=== PATIENT | female | born 1965 ===

== ENCOUNTER 2022-09-07 12:31 | Outpatient (REF) | payer OTHER, SELFPAY ==
[2022-09-07 16:14] LABS: Urine Cytology See Pathology rpt
== END 2022-09-07 12:32 | disposition home or self-care (01) ==
LOC: HO.LNP 12:31
PROVIDERS: PCP Family Medicine; Visit Provider Nurse Practitioner Family
DX: R31.29 Other microscopic hematuria (principal); R39.89 Other symptoms and signs involving the genitourinary system
CPT/HCPCS: 88112; 99202

== ENCOUNTER → 2022-10-19 09:25 | Outpatient (BNVA) | payer MEDICAID, SELFPAY | PROVIDERS: PCP Family Medicine; Visit Provider Urology | DX: R31.29 Other microscopic hematuria (principal); N30.90 Cystitis, unspecified without hematuria | CPT/HCPCS: 52000; 99212 ==

== ENCOUNTER 2023-06-07 08:40 | Outpatient (AMB) | payer MEDICAID, SELFPAY ==
--- NOTE | 2023-06-07 08:41 | A.OFFVIS_ITS ---
Intake Intake Visit Reasons: f/u Cystitis/Microhematuria Intake Note: Patient presents today for a follow-up on Cystitis & Microhematuria: Meds: None Antibiotic: Penicililins, Sulfa Blood Thinner: None Motor Vehicles Supervisor Required: No Accompanied by: Self / Same As Patient Allergies Penicillins [PCN] Allergy (Mild, Verified 06/07/23 08:42) RASH Sulfa (Sulfonamide Antibiotics) [SULFA (SULFONAMIDE ANTIBIOTICS)] Allergy (Mild, Verified 06/07/23 08:42) RASH penicillin V Allergy (Unknown, Verified 06/07/23 08:42) rash Medication List - Last Reconciled 06/07/23 by Natalia Lindsay MD albuterol sulfate 90 mcg/actuation 2 puffs inhalation Q6H PRN famotidine 40 mg PO DAILY fluticasone propion-salmeterol 500-50 mcg/dose (Advair Diskus) 1 ea inhalation BID fluticasone propionate 50 mcg/actuation 2 sprays intranasal DAILY loratadine 10 mg PO DAILY PRN montelukast 10 mg PO BEDTIME omeprazole 20 mg PO QAM rosuvastatin 10 mg PO DAILY HPI HPI Comments History of Present Illness Details Kuldip is a 57-year-old female who presents to the office for follow-up for persistent microscopic hematuria, and cystitis. 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 The patient has had previous office cystoscopy on 10/19/22, findings focal inflammatory changes consistent cystitis no suspicious bladder lesions. The patient states that she was evaluated by her PCP and had pap smear and was told she had urethral prolapse. The patient states she was prescribed estradiol cream which she has not been able to use because it powell. She complains of occasional dysuria. She denies urinary incontinence. She drinks 5 --16 oz bottles of water. Examination today pelvic exam--bladder neck well supported. Mild urethral caruncle. urinalysis-- Blood: 80 Aleksandr/uL, leukocytes: negative. Review of chart: 09/07/22-- Urine cytology- Negative 10/19/2022 Cystoscopy findings-- focal in flammatory changes consistent with cystitis, no suspicious bladder lesions. CAT scan--03/04/22-- 2 mm stone in the left mid ureter CAT scan--07/03/22-- re-demonstrated punctate calcification in the region of the left mid ureter which may either represent calcified plaque of the iliac artery given that uerteral calcification. Also, noted left renal cyst. Plan: Prescribed Premarin cream to see if she may tolerate this better to apply a pea- sized amount to the urethral tissue vaginally Re-evaluate upper tracts-CT urogram Repeat urine cytology Follow-up for repeat office cystoscopy [facility] Medical History Mixed hyperlipidemia Environmental allergies Asthma Surgical History History of abdominoplasty History of tubal ligation Hx of tonsillectomy History of carpal tunnel release Hx of augmentation mammoplasty Hx of appendectomy Family History Father No problems noted. Mother No problems noted. Social History Patient Tobacco Use Status: Former Tobacco user Quit Date: 10 years ago Review of Systems Const All systems reviewed & are unremarkable except as noted in HPI and below Reports no additional complaints Eyes Reports no additional complaints ENT Reports no additional complaints Card Denies dyspnea Resp Denies cough and Denies dyspnea GI Reports no additional complaints Reports no additional complaints Musc Reports no additional complaints Skin/Breast Denies rash and Denies unusual bruising Neuro Reports no additional complaints Psych Reports no additional complaints Endo Reports no additional complaints Hill/Lymph Reports no additional complaints Aller/Immun Reports no additional complaints Physical Exam Const General: cooperative, healthy appearing and no acute distress Orientation/consciousness: patient oriented x3 HEENT Head: Yes normal to inspection, Yes normocephalic and Yes atraumatic Eyes Conjunctivae: conjunctivae normal Neck Neck: Yes normal visual inspection and Yes trachea midline Chest Chest palpation & inspection: normal inspection of the chest Resp Effort & Inspection: normal respiratory effort Cardio Rate: regular rate GI Inspection: Yes normal to inspection Palpation (GI): Soft to palpation Other: mild urethral caruncle General: No no CVA tenderness External Female Exam: normal external appearance Back/Spine/Pelvis Back: No no CVA tenderness Skin General skin exam: no rashes or lesions noted Neuro General: patient oriented x3 Extrem General: No edema Psych Appearance: grossly normal Results AMB Urinalysis, Automated UA Leukoctes 15 Devendra/uL Last Edit by TOÑITO Mckenna on 06/07/23 08:52 UA Nitrite Negative Last Edit by TOÑITO Mckenna on 06/07/23 08:52 UA Urobilinogen 0.2 mg/dL Last Edit by TOÑITO Mckenna on 06/07/23 08:5 2 UA Protein 0 mg/dL Last Edit by TOÑITO Mckenna on 06/07/23 08:52 UA pH 7.0 Last Edit by TOÑITO Mckenna on 06/07/23 08:52 UA Blood 80 Aleksandr/uL Last Edit by TOÑITO Mckenna on 06/07/23 08:52 2+ Taniya Flores 06/07/23 08:52 UA Specific [place] 1.005 Last Edit by TOÑITO Mckenna on 06/07/23 08: 52 UA Ketone Negative Last Edit by TOÑITO Mckenna on 06/07/23 08:52 UA Bilirubin 0 mg/dL Last Edit by TOÑITO Mckenna on 06/07/23 08:52 UA Glucose 0 mg/dL Last Edit by TOÑITO Mckenna on 06/07/23 08:52 Results Reviewed Results Reviewed: Laboratory Last Values Urine pH (Auto) 7.0 06/07/23 08:48 Specific [place] (Auto) 1.005 06/07/23 08:48 Urine Protein (Auto) 0 mg/dL 06/07/23 08:48 Glucose (UA)(Auto) 0 mg/dL 06/07/23 08:48 Urine Ketones (Auto) Negative 06/07/23 08:48 Urine Blood (Auto) 80 Aleksandr/uL 06/07/23 08:48 Urine Nitrite (Auto) Negative 06/07/23 08:48 Urine Bilirubin (Auto) 0 mg/dL 06/07/23 08:48 Urine Urobilinogen (Auto) 0.2 mg/dL 06/07/23 08:48 Leukocyte Esterase (Auto) 15 Devendra/uL 06/07/23 08:48 Collected: 09/07/22 Location: [facility] Received: 09/08/22 Diagnosis Urine: Negative for high-grade urothelial carcinoma. COMMENT: Examination of a monolayer preparation slide shows many benign squamous cells, occasional benign urothelial cells, and few red blood cells Assessment & Plan Assessment & Plan (1) Hematuria: Code(s): R31.9 - Hematuria, unspecified (2) Cystitis: Code(s): N30.90 - Cystitis, unspecified without hematuria (3) Dysuria: Code(s): R30.0 - Dysuria (4) History of nicotine use: Code(s): Z87.891 - Personal history of nicotine dependence (5) Urethral caruncle: Code(s): N36.2 - Urethral caruncle Plan Prescribed Premarin cream to see if she may tolerate this better to apply a pea- sized amount to the urethral tissue vaginally Re-evaluate upper tracts-CT urogram Repeat urine cytology Follow-up for repeat office cystoscopy Orders: Orders AMB Urinalysis Automated Today Z13.9 - Encounter for screening, unspecified CT urogram Today R30.0 - Dysuria, R31.9 - Hematuria, unspecified Medications: New conjugated estrogens (Premarin) use a pea sized amount on fingertip qhs, apply to urethra 0.625 mg vaginal DAILY 30 grams 1RF Patient Instructions: The patient had an opportunity to ask questions regarding treatment plan. All questions were answered. Imaging, Laboratory studies and physical exam results were discussed and reviewed in detail. No major barriers to understanding were identified. The patient expressed understanding and agreement with the above treatment plan. The patient is aware they should contact our office by phone for worsening of their current condition or the appearance of new symptoms. Compliance is encouraged with any medications and followup testing that is ordered. It is a privilege to be allowed the opportunity to participate in the urologic care of your patient. If you have any questions or concerns regarding treatment for the above conditions please do not hesitate to contact me. The office telephone contact is [phone]. This note is constructed in part using voice recognition software. While every effort has been made to ensure accuracy police guard errors may have been included. Yours sincerely, Natalia Lindsay MD Coding Level of Care Code Est Pt Level 4 (39370) Diagnoses Hematuria R31.9 Cystitis N30.90 Dysuria R30.0 History of nicotine use Z87.891 Urethral caruncle N36.2
== END 2023-06-07 09:42 | disposition home or self-care (01) ==
PROVIDERS: PCP Family Medicine; Visit Provider Urology
DX: R31.9 Hematuria, unspecified (principal); N30.90 Cystitis, unspecified without hematuria; R30.0 Dysuria; Z87.891 Personal history of nicotine dependence; N36.2 Urethral caruncle; Z13.9 Encounter for screening, unspecified
CPT/HCPCS: 99214

== ENCOUNTER 2023-06-07 08:40 | Outpatient (REF) | payer MEDICAID, SELFPAY ==
[2023-06-07 17:03] LABS: Urine Cytology See Pathology rpt
== END 2023-06-07 08:41 | disposition home or self-care (01) ==
LOC: HO.LAB 08:40
PROVIDERS: PCP Family Medicine; Visit Provider Urology
DX: N30.91 Cystitis, unspecified with hematuria (principal); R31.29 Other microscopic hematuria; R30.0 Dysuria; N36.2 Urethral caruncle; Z87.891 Personal history of nicotine dependence; Z79.2 Long term (current) use of antibiotics; Z79.899 Other long term (current) drug therapy
CPT/HCPCS: 81003; 87086; 88112; 99212

== ENCOUNTER 2023-07-19 08:45 | Outpatient (REF) | payer MEDICAID, SELFPAY ==
--- NOTE | ~2023-07-19 | CT_ITS ---
EXAMINATION: CT UROGRAM WITHOUT AND WITH CONTRAST CLINICAL INFORMATION: Reason for Exam R31.9 - Hematuria, unspecified COMPARISON: No pertinent prior examinations are available for comparison. TECHNIQUE: Helical scanning was performed with collimation through the abdomen and pelvis precontrast. Helical scanning was then repeated with submillimeter collimation through the abdomen and pelvis in the pyelogram phase with use of 100 mL of Omnipaque 300 intravenous contrast. Sagittal and coronal 2-D reconstructions were obtained. Multiple additional 3-D volume rendered images were obtained of the kidneys and collecting systems on an independent workstation under concurrent supervision. This CT examination was performed using dose optimization techniques as appropriate, variously including the following: *Automated exposure control *Adjustment of mA and/or kV according to patient size (this includes techniques or standardized protocols for targeted exams where dose is matched to indication/reason for exam; i.e. extremities or head) *Use of iterative reconstruction technique DLP: [id number] FINDINGS: LUNG BASES: Bibasilar atelectasis. Calcified granulomas right lower lobe. No pneumothorax. No large pleural effusion. LIVER, GALLBLADDER, AND BILIARY TREE: The liver is normal in size, shape, and attenuation. No focal hepatic lesion or biliary ductal dilatation is present. The gallbladder is unremarkable with no evidence of radiopaque gallstones, gallbladder wall thickening, or obvious pericholecystic inflammatory changes. PANCREAS: Unremarkable SPLEEN: Unremarkable ADRENAL GLANDS: Unremarkable KIDNEYS AND URETERS: Specific attention was given to the kidneys. The right kidney measures 10.4 cm in size and the left kidney measures 10.4 cm in size. Left renal parapelvic cyst simple appearing not requiring follow-up measuring up to 2.6 cm. The kidneys are normal in size, shape, and attenuation. No hydronephrosis, hydroureter, or calculi seen. No perinephric stranding. No obvious mass lesion or filling defect is seen in the collecting systems or ureters. BLADDER: Urinary bladder fills appropriately and postcontrast imaging without focal filling defects identified. GASTROINTESTINAL TRACT: The small and large bowel are unremarkable. Appendix appears surgically absent. ABDOMINAL WALL: No significant hernia is appreciated. LYMPHOVASCULAR STRUCTURES: No enlarged lymph nodes per size criteria. Abdominal aorta is nonaneurysmal. PELVIC VISCERA: Anteverted uterus. OSSEOUS STRUCTURES: Slight grade 1 anterolisthesis of L5 and S1 with bilateral L5 pars defects. Multilevel degenerative changes of the thoracolumbar and lumbosacral spine. Sclerotic focus right femoral head statistically representing a bone island. CT/CT urogram IMPRESSION: 1. No acute process of the abdomen or pelvis visualized. 2. Left renal parapelvic cyst simple appearing not requiring follow-up. 3. Urinary bladder fills appropriately and postcontrast imaging without focal filling defects identified. 4. Slight grade 1 anterolisthesis of L5 and S1 with bilateral L5 pars defects.
[2023-07-19 09:35] LABS: Blood Urea Nitrogen 15 mg/dL (9-16); Estimated Glomerular Filt Rate > 60
[2023-07-19] MEDS: iohexoL 350 MG/ML 100 ML INFUS..BTL 85 ML IV (10:42)
== END 2023-07-19 08:46 | disposition home or self-care (01) ==
LOC: HO.CT 08:45
PROVIDERS: Visit Provider Urology
DX: R31.9 Hematuria, unspecified (principal); R30.0 Dysuria
CPT/HCPCS: 36415; 74178; 82565; 84520; Q9967

== ENCOUNTER → 2023-07-26 08:50 | Outpatient (BNVA) | payer MEDICAID, SELFPAY | PROVIDERS: PCP Family Medicine; Visit Provider Urology | DX: N36.2 Urethral caruncle (principal); R39.89 Other symptoms and signs involving the genitourinary system; R31.29 Other microscopic hematuria | CPT/HCPCS: 52000; 81003 ==

== ENCOUNTER 2023-07-26 13:15 | Outpatient (AMB) | payer MEDICAID, SELFPAY ==
--- NOTE | 2023-07-26 13:17 | MHC.OFFVIS ---
Intake Intake Visit Reasons: cysto Intake Note: Patient presents today for a Cystoscopy Meds: None Allergies to Antibiotic: Sulfa, Penicillins Blood Thinner: None Urinalysis test clear for Cysto? Yes Disposable Uro-G Cystoscope Cannula: Lot: [id number] Exp: 03/01/2026 Director Of Individual Giving Required: No Accompanied by: Daughter Allergies Penicillins [PCN] Allergy (Mild, Verified 07/26/23 13:41) RASH Sulfa (Sulfonamide Antibiotics) [SULFA (SULFONAMIDE ANTIBIOTICS)] Allergy (Mild, Verified 07/26/23 13:41) RASH penicillin V Allergy (Unknown, Verified 07/26/23 13:41) rash HPI HPI Comments History of Present Illness Details Kuldip is a pleasant female. Her daughter is present to interpret. Seen for the following urologic conditions - cystitis - urethral caruncle Office repeat cystoscopy for cystitis and urethral caruncle Significant improvement while Stone Premarin cream Cystoscopy with no areas of cystitis Cystitis 09/07/22-- Urine cytology- Negative 10/19/2022 Cystoscopy findings-- focal inflammatory changes consistent with cystitis, no suspicious bladder lesions Plan: Continue Premarin cream Six-month follow-up with Dr. Parmar [facility] Medical History Mixed hyperlipidemia Environmental allergies Asthma Surgical History History of abdominoplasty History of tubal ligation Hx of tonsillectomy History of carpal tunnel release Hx of augmentation mammoplasty Hx of appendectomy Family History Father No problems noted. Mother No problems noted. Social History Patient Tobacco Use Status: Former Tobacco user Quit Date: 10 years ago Review of Systems Const Denies chills and Denies fever(s) Card Reports no additional complaints and Denies syncope Resp Denies cough GI Denies abdominal pain and Denies heartburn Reports as per HPI and Denies change in libido Neuro Denies syncope Psych Denies change in libido Endo Denies change in libido Physical Exam Const General: cooperative, healthy appearing, comfortable and no acute distress Orientation/consciousness: patient oriented x3 HEENT Face and sinus: Yes normal facial exam Mouth: moist mucous membranes Neck Neck: Yes normal visual inspection, Yes full ROM and Yes trachea midline Chest Chest palpation & inspection: normal inspection of the chest Resp Effort & Inspection: normal respiratory effort, able to speak in complete sentences and no respiratory distress GI Inspection: Yes normal to inspection Back/Spine/Pelvis Cervical Spine: normal cervical lordosis Thoracic/Lumbar Spine: thoracic and lumbar spine normal to inspection Skin General skin exam: no rashes or lesions noted Neuro General: patient oriented x3, gait normal, tone normal and moves all extremities Extrem General: Yes normal to inspection and Yes capillary refill normal Office Procedures Cystoscopy Consent Discussed risk and benefit or proposed procedure with the patient. Information consent for procedure given to the patient. Discussed technical aspects, risks, benefits and alternatives in full. Addressed all of the patient's questions and concerns regarding the procedure. The patient demonstrated knowledge and understanding. They wish to proceed with this procedure. Preparation The patient was prepped in the usual manner. A supervisor molding was present and in the room. Genitalia was prepped with betadine solution in a sterile manner. Lidocaine Jelly 2% was placed into the urethra and 16Fr flexible Olympus cystoscope was inserted into the meatus after adequate lubrication. Procedure Meatus -urethral caruncle Urethra normal Bladder examination with retroflexion of cystoscope Bladder Orifices normal shape and position Trigone mild inflammation Bladder Capacity medium Trabeculations - Cellule Formation - Diverticulum Formation - Mucosal Erythema - Bladder Tumor - [id number] DISPOSABLE SCOPE URO-G FLEXIBLE SCOPE Procedure code (CPT) selection complete Office Meds lidocaine HCl 2 % mucosal jelly in applicator Performing Provider: Mike Garrison MD [facility] Administered by: Rita Hercules RN on 07/26/23 13:49 Dose Route Admin Location Dispensed Lot Number Expiration Date [facility] Tipple Mechanic 10 mL intra-urethral 10 mL nitrofurantoin monohydrate/macrocrystals 100 mg capsule Performing Provider: Mike Garrison MD Performing [facility] Administered by: Rita Hercules RN on 07/26/23 13:49 Dose Route Admin Location Dispensed Lot Number Expiration Date [facility] Tipple Mechanic 100 mg PO 1 cap naproxen 500 mg tablet Performing Provider: Mike Garrison MD Performing [facility] Administered by: Rita Hercules RN on 07/26/23 13:49 Dose Route Admin Location Dispensed Lot Number Expiration Date [facility] Tipple Mechanic 500 mg PO 1 tab Results AMB Urinalysis, Automated UA Leukoctes 15 Devendra/uL Last Edit by Roya Guadalupe CMA on 07/26/23 13:41 UA Nitrite Negative Last Edit by Roya Guadalupe CMA on 07/26/23 13:41 UA Urobilinogen 0.2 mg/dL Last Edit by Roya Guadalupe CMA on 07/26/23 13:41 UA Protein 0 mg/dL Last Edit by Roya Guadalupe [facility] on 07/26/23 13:41 UA pH 7.5 Last Edit by Roya Guadalupe [facility] on 07/26/23 13:41 UA Blood 25 Aleksandr/uL Last Edit by Roya Guadalupe CMA on 07/26/23 13:41 UA Specific [place] 1.005 Last Edit by Roya Guadalupe [facility] on 07/26/23 13:41 UA Ketone Negative Last Edit by Roya Guadalupe [facility] on 07/26/23 13:41 UA Bilirubin 0 mg/dL Last Edit by Roya Guadalupe [facility] on 07/26/23 13:41 UA Glucose 0 mg/dL Last Edit by Roya Guadalupe CMA on 07/26/23 13:41 Results Reviewed Results Reviewed: Laboratory Last Values Urine pH (Auto) 7.5 07/26/23 13:31 Specific [place] (Auto) 1.005 07/26/23 13:31 Urine Protein (Auto) 0 mg/dL 07/26/23 13:31 Glucose (UA)(Auto) 0 mg/dL 07/26/23 13:31 Urine Ketones (Auto) Negative 07/26/23 13:31 Urine Blood (Auto) 25 Aleksandr/uL 07/26/23 13:31 Urine Nitrite (Auto) Negative 07/26/23 13:31 Urine Bilirubin (Auto) 0 mg/dL 07/26/23 13:31 Urine Urobilinogen (Auto) 0.2 mg/dL 07/26/23 13:31 Leukocyte Esterase (Auto) 15 Devendra/uL 07/26/23 13:31 Assessment & Plan Assessment & Plan (1) Bladder pain: Code(s): R39.89 - Other symptoms and signs involving the genitourinary system (2) Microhematuria: Code(s): R31.29 - Other microscopic hematuria (3) Urethral caruncle: Code(s): N36.2 - Urethral caruncle Plan Six-month follow-up Orders: Orders AMB Urinalysis Automated Today R33.9 - Retention of urine, unspecified AMB Cystoscopy Today N30.90 - Cystitis, unspecified without hematuria, N36.2 - Urethral caruncle, R30.0 - Dysuria, R31.29 - Other microscopic hematuria, R31.9 - Hematuria, unspecified, R39.89 - Other symptoms and signs involving the genitourinary system Patient Instructions: Imaging studies, laboratory and physical exam results were discussed and reviewed in detail. No major barriers to patient understanding were identified. An opportunity to ask questions regarding the treatment plan was provided. All questions were answered. The patient expressed understanding and agreement with the above treatment plan. The patient is aware they should contact our office by phone for worsening of their current condition or the appearance of new urologic symptoms. Compliance is encouraged with any medications and followup testing that is ordered. It is a privilege to participate in the urologic care of your patient. If you have any questions or concerns regarding treatment for the above conditions, or other urologic issues, please do not hesitate to contact me. The office telephone contact is [phone]. This note is constructed using voice recognition software. While every effort has been made to ensure accuracy kosher dietary service manager errors may have been included. Yours sincerely, Dr Mike Garrison MD, [facility] - Urology Providers of Expert, Compassionate Care for the Genitourinary System Coding Level of Care Code Est Pt Level 3 (02098) Diagnoses Bladder pain R39.89 Microhematuria R31.29 Urethral caruncle N36.2 CPT Codes Cystoscopy - CPT: [id number] ([id number])
== END 2023-07-26 14:11 | disposition home or self-care (01) ==
PROVIDERS: PCP Family Medicine; Visit Provider Urology
DX: N36.2 Urethral caruncle (principal); R31.9 Hematuria, unspecified; R30.0 Dysuria; N30.90 Cystitis, unspecified without hematuria; R39.89 Other symptoms and signs involving the genitourinary system; R31.29 Other microscopic hematuria; R33.9 Retention of urine, unspecified
CPT/HCPCS: 52000

== ENCOUNTER 2024-01-31 10:17 | Outpatient (AMB) | payer MEDICAID, SELFPAY ==
--- NOTE | 2024-01-31 10:34 | A.OFFVIS_ITS ---
Intake Visit Reasons: 6m follow up Intake Note: Patient is Present for Follow Up Urinalysis Check Urology Medication:Premarin Antibiotic Allergies:Sulfa Antibiotics, Penicillins Blood Thinners:None Allergies Penicillins [PCN] Allergy (Mild, Verified 07/26/23 13:41) RASH Sulfa (Sulfonamide Antibiotics) [SULFA (SULFONAMIDE ANTIBIOTICS)] Allergy (Mild, Verified 07/26/23 13:41) RASH penicillin V Allergy (Unknown, Verified 07/26/23 13:41) rash HPI Comments Details: Kuldip is a pleasant female. Her daughter is present to interpret. Seen for the following urologic conditions - cystitis - urethral caruncle Six-month follow-up Prior Office repeat cystoscopy for cystitis and urethral caruncle Significant improvement while on Premarin cream Cystoscopy with no areas of cystitis Had stopped Premarin cream Encouraged to restart 3 times a week for foreseeable future Cystitis 09/07/22-- Urine cytology- Negative 10/19/2022 Cystoscopy findings-- focal inflammatory changes consistent with cystitis, no suspicious bladder lesions Plan: Continue Premarin cream 1 year follow-up nurse-practitioner [facility] Medical History Mixed hyperlipidemia Environmental allergies Asthma Surgical History History of abdominoplasty History of tubal ligation Hx of tonsillectomy History of carpal tunnel release Hx of augmentation mammoplasty Hx of appendectomy Family History Father No problems noted. Mother No problems noted. Social History Patient Tobacco Use Status: Former Tobacco user Review of Systems Const Denies chills and Denies fever(s) Card Reports no additional complaints and Denies syncope Resp Denies cough GI Denies abdominal pain and Denies heartburn Reports as per HPI and Denies change in libido Neuro Denies syncope Psych Denies change in libido Endo Denies change in libido Physical Exam Const General: cooperative, healthy appearing, comfortable and no acute distress Orientation/consciousness: patient oriented x3 HEENT Face and sinus: Yes normal facial exam Mouth: moist mucous membranes Neck Neck: Yes normal visual inspection, Yes full ROM and Yes trachea midline Chest Chest palpation & inspection: normal inspection of the chest Resp Effort & Inspection: normal respiratory effort, able to speak in complete sentences and no respiratory distress GI Inspection: Yes normal to inspection Back/Spine/Pelvis Cervical Spine: normal cervical lordosis Thoracic/Lumbar Spine: thoracic and lumbar spine normal to inspection Skin General skin exam: no rashes or lesions noted Neuro General: patient oriented x3, gait normal, tone normal and moves all extremities Extrem General: Yes normal to inspection and Yes capillary refill normal Results AMB Urinalysis, Automated UA Leukoctes 0 Devendra/uL Last Edit by Gillian Salcedo [facility] on 01/31/24 10:44 UA Nitrite Negative Last Edit by Gillian Salcedo [facility] on 01/31/24 10:44 UA Urobilinogen 0.2 mg/dL Last Edit by Gillian Salcedo [facility] on 01/31/24 10:4 4 UA Protein 0 mg/dL Last Edit by Gillian Salcedo [facility] on 01/31/24 10:44 UA pH 7.0 Last Edit by Gillian Salcedo [facility] on 01/31/24 10:44 UA Blood 80 Aleksandr/uL Last Edit by Gillian Salcedo [facility] on 01/31/24 10:44 UA Specific [place] 1.015 Last Edit by Gillian Salcedo [facility] on 01/31/24 10: 44 UA Ketone Negative Last Edit by Gillian Salcedo [facility] on 01/31/24 10:44 UA Bilirubin 0 mg/dL Last Edit by Gillian Salcedo [facility] on 01/31/24 10:44 UA Glucose 0 mg/dL Last Edit by Gillian Salcedo [facility] on 01/31/24 10:44 Results Reviewed Results Reviewed: Laboratory Last Values Urine pH (Auto) 7.0 01/31/24 10:43 Specific [place] (Auto) 1.015 01/31/24 10:43 Urine Protein (Auto) 0 mg/dL 01/31/24 10:43 Glucose (UA)(Auto) 0 mg/dL 01/31/24 10:43 Urine Ketones (Auto) Negative 01/31/24 10:43 Urine Blood (Auto) 80 Aleksandr/uL 01/31/24 10:43 Urine Nitrite (Auto) Negative 01/31/24 10:43 Urine Bilirubin (Auto) 0 mg/dL 01/31/24 10:43 Urine Urobilinogen (Auto) 0.2 mg/dL 01/31/24 10:43 Leukocyte Esterase (Auto) 0 Devendra/uL 01/31/24 10:43 Assessment & Plan Assessment & Plan (1) Urethral caruncle: Code(s): N36.2 - Urethral caruncle Category: Medical Plan Twelve month follow-up Orders: Orders AMB Urinalysis Automated Today Z13.9 - Encounter for screening, unspecified Patient Instructions: Imaging studies, laboratory and physical exam results were discussed and reviewed in detail. No major barriers to patient understanding were identified. An opportunity to ask questions regarding the treatment plan was provided. All questions were answered. The patient expressed understanding and agreement with the above treatment plan. The patient is aware they should contact our office by phone for worsening of their current condition or the appearance of new urologic symptoms. Compliance is encouraged with any medications and followup testing that is ordered. It is a privilege to participate in the urologic care of your patient. If you have any questions or concerns regarding treatment for the above conditions, or other urologic issues, please do not hesitate to contact me. The office telephone contact is [phone]. This note is constructed using voice recognition software. While every effort has been made to ensure accuracy soils technician errors may have been included. Yours sincerely, Dr Mike Garrison MD, [facility] - Urology Providers of Expert, Compassionate Care for the Genitourinary System Coding Level of Care Code Est Pt Level 3 (48252) Diagnoses Urethral caruncle N36.2
== END 2024-01-31 11:07 | disposition home or self-care (01) ==
PROVIDERS: PCP Family Medicine; Visit Provider Urology
DX: Z13.9 Encounter for screening, unspecified (principal); N36.2 Urethral caruncle
CPT/HCPCS: 99213

== ENCOUNTER → 2024-01-31 10:17 | Outpatient (BNVA) | payer MEDICAID, SELFPAY | PROVIDERS: PCP Family Medicine; Visit Provider Urology | DX: N36.2 Urethral caruncle (principal) | CPT/HCPCS: 81003; 99212 ==